=== PATIENT | male | born 1950 | race Caucasian/White ===

== ENCOUNTER → 2022-05-12 08:14 | Outpatient (CLI) | payer MEDICARE, OTHER, SELFPAY ==
--- NOTE | ~2022-05-12 | MR_ITS ---
EXAMINATION: MR shoulder RT wo con DATE: 05/12/2022 09:01 INDICATION: Right shoulder pain. Injury of tendon of biceps. TECHNIQUE: Magnetic resonance imaging (MRI) of the right shoulder was performed without intravenous c ontrast. Sequences included axial PD-weighted FS FSE, coronal oblique PD-weighted FS FSE and T2-weigh cheng FS FSE, and sagittal oblique T2-weighted FS FSE and T1-weighted FSE. COMPARISON: None. FINDINGS: Coracoacromial arch: The acromion undersurface is curved in morphology (type II). There is severe acromioclavicular joint osteoarthritis including inferior directed osteophytes. There is mild subacromial/subdeltoid bursitis . Rotator cuff: There is severe supraspinatus and infraspinatus tendinopathy. There is a bursal-sided tear of the con joined portion of the tendon measuring 4 mm anterior to posterior by 9 mm proximal to distal by 40% t endon thickness. Teres minor tendon is normal. There is moderate subscapularis tendinopathy. There is no asymmetric fatty atrophy of the rotator cuff muscle bellies. Biceps tendon and glenoid labrum: There is a complete tear of biceps tendon, which is absent from bicipital groove. Partially visualize d is fluid in the upper arm in the expected area of the tendon, likely hematoma. There is degenerativ e tearing of the glenoid labrum. Fluid: There is a small glenohumeral joint effusion. Bones/cartilage: There is shallow partial-thickness cartilage loss of glenoid and humeral head. Osteophytes are noted. IMPRESSION: 1. Complete tear of proximal biceps tendon. 2. Severe rotator cuff tendinopathy with bursal-sided, partial-thickness tear of supraspinatus and in fraspinatus tendons. 3. Mild glenohumeral joint chondrosis. 4. Severe acromioclavicular joint osteoarthritis. 5. Small glenohumeral joint effusion. 6. Mild subacromial/subdeltoid bursitis. Reviewed, dictated and finalized at location A. IMPRESSION: 1. Complete tear of proximal biceps tendon. 2. Severe rotator cuff tendinopathy with bursal-sided, partial-thickness tear o f supraspinatus and infraspinatus tendons. 3. Mild glenohumeral joint chondrosis. 4. Severe acromioclavicular joint osteoarthritis. 5. Small glenohumeral joint effusion. 6. Mild subacromial/subdeltoid bursitis.
== END ==
PROVIDERS: PCP Registered Nurse; Visit Provider Registered Nurse
DX: S46.211A Strain of muscle, fascia and tendon of other parts of biceps, right arm, initial encounter (principal); X58.XXXA Exposure to other specified factors, initial encounter; M19.011 Primary osteoarthritis, right shoulder; M75.51 Bursitis of right shoulder; M25.411 Effusion, right shoulder
CPT/HCPCS: 73221

== ENCOUNTER → 2022-08-17 10:19 | Outpatient (CLI) | payer MEDICARE, OTHER, SELFPAY ==
--- NOTE | ~2022-08-17 | CT_ITS ---
EXAMINATION: CT soft tissue neck wo con DATE: 08/17/2022 10:35 INDICATION: Neck pain. Right jaw pain. TECHNIQUE: Computed tomography (CT) of the neck was performed with 75 mL Omnipaque-350 intravenous co ntrast. Automated exposure control and iterative reconstruction technique were employed. The dose-sarah gth product was 414.98 mGy-cm. COMPARISON: None FINDINGS: There are likely changes of ocular lens replacement surgeries. There are no pathologically enlarged lymph nodes. The major salivary glands are normal. The paranasal sinuses are clear. The mast oid air cells are normal. There is moderate cervical spondylosis. There is mild osteoarthritis of the temporomandibular joints. IMPRESSION: 1. Mild osteoarthritis of the temporomandibular joints. 2. Moderate cervical spondylosis. Reviewed, dictated and finalized at location A. [employer] CHAIN ANALYST
== END ==
PROVIDERS: PCP Registered Nurse; Visit Provider Registered Nurse
DX: R68.84 Jaw pain (principal); M47.892 Other spondylosis, cervical region
CPT/HCPCS: 70490

== ENCOUNTER → 2023-10-17 08:52 | Outpatient (CLI) | payer MEDICARE, SELFPAY ==
--- NOTE | ~2023-10-17 | US_ITS ---
Limited Abdominal Sonogram: Real-time sonographic imaging of the right upper quadrant was performed. Clinical History: Abnormal liver enzymes Findings: The liver appears normal with no evidence of mass lesion or bile duct dilatation. Main por mario vein demonstrates normal direction of flow. The gallbladder is well distended, and and contains s mall gallstones. No gallbladder wall thickening evident. The common bile duct measures 3 mm. The vis ualized pancreas, aorta, and IVC are unremarkable. Impression: Cholelithiasis. Reviewed, dictated and finalized at location M. S APPOINTMENT COORDINATOR Impression: Cholelithiasis.
== END ==
PROVIDERS: PCP Registered Nurse; Visit Provider Registered Nurse
DX: R74.8 Abnormal levels of other serum enzymes (principal); K80.20 Calculus of gallbladder without cholecystitis without obstruction
CPT/HCPCS: 76705